=== PATIENT | male | born 2000 | race Caucasian/White ===

== ENCOUNTER 2020-04-10 05:07 | Emergency (ER) | payer SELFPAY ==
[~2020-04-10] VITALS: Ht 185.4 cm; Wt 90.7 kg
[2020-04-10 06:07] VITALS: BP 110/78
== END 2020-04-10 07:07 | disposition home or self-care (01) ==
LOC: ER 05:07
DX: B86 Scabies (principal)

== ENCOUNTER 2020-05-10 04:33 | Emergency (ER) | payer MEDICAID ==
[~2020-05-10] VITALS: Ht 177.8 cm; Wt 83.9 kg
[2020-05-10 05:41] VITALS: BP 118/68
== END 2020-05-10 05:50 | disposition home or self-care (01) ==
LOC: ER 04:35
DX: B86 Scabies (principal)